=== PATIENT | female | born 1935 | race Caucasian/White ===

== ENCOUNTER 2017-11-06 19:58 | Observation (INO) | payer MEDICARE, BC ==
[2017-11-06] MEDS ORDERED: Sodium Chloride 0.9% 10 ML Syringe FLUSH PRN (20:58)
[2017-11-06 21:24] LABS: ANION GAP 12.5; CHLORIDE,CL 108 mmol/L (101-111); SODIUM,NA 140 mmol/L (135-145)
[2017-11-06] MEDS ORDERED: Aspirin 81 MG Tab.Chew PO ONE (21:32)
--- NOTE | 2017-11-06 21:43 | EDM.PDOC ---
ED HPI GENERAL MEDICAL PROBLEM - General Chief Complaint: Cardiovascular Problem Stated Complaint: IRREGULAR HEART BEATS, Time Seen by Provider: 11/06/17 21:20 Source of Information: Reports: Patient History Limitations: Reports: No Limitations - History of Present Illness INITIAL COMMENTS - FREE TEXT/NARRATIVE: patient comes emergency Department today with complaints of palpitations and irregular heartbeat. Today approximately noon she noticed that she had multiple irregular heartbeats. 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 She is unsure of how fast her heart rate was that she did not check for a total count of her beats per minute. She did have some chest pain and shortness of breath at approximately noon although at this time is really asymptomatic other than complaining of some irregular heartbeat as well as palpitations. She denies any nausea vomiting or diaphoresis. She denies any weakness dizziness or syncope. She was seen in the clinic a couple of days ago for very similar symptoms and was referred to cardiology for further evaluation for possible atrial fibrillation and/or atrial flutter. - Related Data Allergies Allergy/AdvReac Type Severity Reaction Status Date / Time atorvastatin calcium Allergy Other Verified 11/06/17 22:55 [From Lipitor] ezetimibe Allergy Cannot Verified 11/06/17 22:55 Remember fish oil Allergy Other Verified 11/06/17 22:55 hydrochlorothiazide Allergy Other Verified 11/06/17 22:55 pravastatin Allergy Other Verified 11/06/17 22:55 rosuvastatin calcium Allergy Other Verified 11/06/17 22:55 [From Crestor] simvastatin Allergy Cannot Verified 11/06/17 22:55 Remember statins Allergy Arrhythmias Uncoded 11/06/17 22:55 Home Meds: Home Meds Aspirin [Adult Low Dose Aspirin EC] 81 mg PO DAILY 10/23/13 [History] Lisinopril 30 mg PO DAILY 10/23/13 [History] Past Medical History HEENT History: Reports: Hard of Hearing Cardiovascular History: Reports: Heart Murmur, High Cholesterol, Hypertension Gastrointestinal History: Reports: Hemorrhoids 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: Musculoskeletal History: Reports: Arthritis Neurological History: Reports: None Psychiatric History: Reports: None Endocrine/Metabolic History: Reports: None Hematologic History: Reports: Anemia Immunologic History: Reports: None Oncologic (Cancer) History: Reports: None Dermatologic History: Reports: None - Infectious Disease History Infectious Disease History: Reports: Measles, Mumps - Past Surgical History HEENT Surgical History: Reports: Cataract Surgery GI Surgical History: Reports: Colonoscopy Female Surgical History: Reports: D&C Musculoskeletal Surgical History: Reports: Carpal Tunnel Social & Family History - Family History Cardiac: Reports: High Cholesterol, Hypertension, [place] Other Cardiac Family History: Mother brother and 2 sisters of heart attacks. - Tobacco Use Smoking Status *Q: Never Smoker Years of Tobacco use: 20 Month Tobacco Last Used: 1964 Second Hand Smoke Exposure: No - Caffeine Use Caffeine Use: Reports: Coffee - Alcohol Use Days Per Week of Alcohol Use: 1 Number of Drinks Per Day: 1 Total Drinks Per Week: 1 - Recreational Drug Use Recreational Drug Use: No ED ROS GENERAL - Review of Systems Review Of Systems: ROS reveals no pertinent complaints other than HPI. ED EXAM, GENERAL - Physical Exam Exam: See Below Exam Limited By: No Limitations General Appearance: Alert, WD/WN, No Apparent Distress Eye Exam: Bilateral Eye: Normal Inspection Ears: Normal External Exam, Normal Canal, Normal TMs Nose: Normal Inspection Throat/Mouth: Normal Inspection, Normal Lips, Normal Oropharynx Head: Atraumatic, Normocephalic Neck: Normal Inspection, Supple Respiratory/Chest: No Respiratory Distress, Lungs Clear, Normal Breath Sounds, No Accessory Muscle Use Cardiovascular: Normal Peripheral Pulses, No Edema, No JVD, No Murmur. No: Regular Rate, Rhythm (EKG shows a normal sinus rhythm with frequent PACs. These are perfuse PACs. She does have irregular distal pulses.), No Rub, Diastolic Murmur Peripheral Pulses: 2+: Radial (L), Radial (R), Posterior Tibial (L), Posterior Tibial (R), Dorsalis Pedis (L), Dorsalis Pedis (R) GI/Abdominal: Normal Bowel Sounds, Soft (Female) Exam: Deferred Rectal (Female) Exam: Deferred Back Exam: Normal Inspection, Full Range of Motion Extremities: Normal Inspection, Normal Range of Motion, Non-Tender, Normal Capillary Refill Neurological: Alert, Oriented, CN II-XII Intact, Normal Reflexes Psychiatric: Normal Affect, Normal Mood Skin Exam: Warm, Dry, Normal Color, No Rash Lymphatic: No Adenopathy EKG INTERPRETATION EKG Date: 11/06/17 Time: 20:34 Rhythm: NSR (with frequent perfused PACs multifocal.) Rate (Beats/Min): 78 [place]: Normal P-Wave: Present QRS: Normal ST-T: Normal QT: Normal Comparison: NA - No Prior EKG Course - Vital Signs Last Recorded V/S: Last Vital Signs Temp 36.5 C 11/06/17 22:40 Pulse 73 11/06/17 22:40 Resp 18 11/06/17 22:40 BP 153/90 H 11/06/17 22:40 Pulse Ox 99 11/06/17 22:40 - Orders/Labs/Meds Orders: Active Orders 24 hr Category Date Time Status EKG 12 Lead [EKG Documentation Completion] [RC] URGENT Care 11/06/17 20:58 Active Telemetry Monitoring [Cardiac Monitoring] [RC] . Care 11/06/17 22:44 Active DIRECTED BASIC METABOLIC PANEL,BMP [CHEM] AM Lab 11/07/17 05:11 Ordered CBC WITH AUTO DIFF [HEME] AM Lab 11/07/17 05:15 Ordered MAGNESIUM [CHEM] AM Lab 11/07/17 05:11 Ordered PHOSPHORUS [CHEM] AM Lab 11/07/17 05:11 Ordered TROPONIN I [CHEM] AM Lab 11/07/17 05:11 Ordered Aspirin [Halfprin] Med 11/07/17 09:00 Active 81 mg PO DAILY Lisinopril [Prinivil] Med 11/07/17 09:00 Active 30 mg PO DAILY Sodium Chloride 0.9% [Saline Flush] Med 11/06/17 20:58 Active 10 ml FLUSH ASDIRECTED PRN Peripheral IV Insertion Adult [OM.PC] Stat Oth 11/06/17 20:58 Ordered Medication Orders Acetaminophen (Tylenol) 650 mg PO Q4H PRN PRN Reason: Pain (Mild 1-3)/fever Aspirin (Halfprin) 81 mg PO DAILY [facility] Heparin Sodium (Porcine) (Heparin Sodium) 5,000 units SUBCUT Q8HR [facility] Lisinopril (Prinivil) 30 mg PO DAILY [facility] Sodium Chloride (Saline Flush) 10 ml FLUSH ASDIRECTED PRN PRN Reason: Keep Vein Open Last Admin: 11/06/17 22:00 Dose: 10 ml Zolpidem Tartrate (Ambien) 5 mg PO BEDTIME PRN PRN Reason: Sleep Labs: Laboratory Tests 11/06/17 11/06/17 11/06/17 Range/Units 20:53 20:53 20:53 WBC 5.3 (5.0-10.0) 10^3/uL RBC 4.20 (4.2-5.4) 10^6/uL Hgb 14.0 (12.0-16.0) g/dL Hct 41.7 (37.0-47.0) % MCV 99.3 (80-100) fL MCH 33.3 (27.0-34.0) pg MCHC 33.6 (33.0-35.0) g/dL Plt Count 198 (150-450) 10^3/uL Neut % (Auto) 54.2 (42.2-75.2) % Lymph % (Auto) 29.8 (20.5-50.1) % Grand % (Auto) 13.9 H (2-8) % Eos % (Auto) 1.7 (1.0-3.0) % Baso % (Auto) 0.4 (0.0-1.0) % Sodium 140 (135-145) mmol/L Potassium 3.5 L (3.6-5.0) mmol/L Chloride 108 (101-111) mmol/L Carbon Dioxide 23.0 (21.0-31.0) mmol/L Anion Gap 12.5 BUN 24 H (7-18) mg/dL Creatinine 0.9 (0.6-1.3) mg/dL Est Cr Clr Drug Dosing TNP Estimated GFR (MDRD) > 60 BUN/Creatinine Ratio 26.66 Glucose 114 H (74-105) mg/dL Calcium 9.1 (8.4-10.2) mg/dl Total Bilirubin 0.7 (0.2-1.0) mg/dL AST 26 (10-42) IU/L ALT 17 (10-60) IU/L Alkaline Phosphatase 61 (42-121) IU/L Troponin I 0.03 H* (0.00-0.02) ng/ml C-Reactive Protein (0.0-1.3) mg/dL Total Protein 6.7 (6.7-8.2) g/dl Albumin 3.9 (3.2-5.5) g/dl Globulin 2.8 Albumin/Globulin Ratio 1.39 TSH, Ultra Sensitive 2.46 (0.45-5.33) uIu/mL 11/06/17 Range/Units 20:53 WBC (5.0-10.0) 10^3/uL RBC (4.2-5.4) 10^6/uL Hgb (12.0-16.0) g/dL Hct (37.0-47.0) % MCV (80-100) fL MCH (27.0-34.0) pg MCHC (33.0-35.0) g/dL Plt Count (150-450) 10^3/uL Neut % (Auto) (42.2-75.2) % Lymph % (Auto) (20.5-50.1) % Grand % (Auto) (2-8) % Eos % (Auto) (1.0-3.0) % Baso % (Auto) (0.0-1.0) % Sodium (135-145) mmol/L Potassium (3.6-5.0) mmol/L Chloride (101-111) mmol/L Carbon Dioxide (21.0-31.0) mmol/L Anion Gap BUN (7-18) mg/dL Creatinine (0.6-1.3) mg/dL Est Cr Clr Drug Dosing Estimated GFR (MDRD) BUN/Creatinine Ratio Glucose (74-105) mg/dL Calcium (8.4-10.2) mg/dl Total Bilirubin (0.2-1.0) mg/dL AST (10-42) IU/L ALT (10-60) IU/L Alkaline Phosphatase (42-121) IU/L Troponin I (0.00-0.02) ng/ml C-Reactive Protein 0.5 (0.0-1.3) mg/dL Total Protein (6.7-8.2) g/dl Albumin (3.2-5.5) g/dl Globulin Albumin/Globulin Ratio TSH, Ultra Sensitive (0.45-5.33) uIu/mL Meds: Medications Generic Name Dose Route Start Last Admin Trade Name Freq PRN Reason Stop Dose Admin Acetaminophen 650 mg 11/06/17 22:58 Tylenol PO Q4H PRN Pain (Mild 1-3)/fever Aspirin 81 mg 11/07/17 09:00 Halfprin PO DAILY JAMEEL Heparin Sodium (Porcine) 5,000 units 11/07/17 06:00 Heparin Sodium SUBCUT Q8HR JAMEEL Lisinopril 30 mg 11/07/17 09:00 Prinivil PO DAILY JAMEEL Sodium Chloride 10 ml 11/06/17 20:58 11/06/17 22:00 Saline Flush FLUSH 10 ml ASDIRECTED PRN Administration Keep Vein Open Zolpidem Tartrate 5 mg 11/06/17 22:58 Ambien PO BEDTIME PRN Sleep Discontinued Medications Generic Name Dose Route Start Last Admin Trade Name Maryam PRN Reason Stop Dose Admin Aspirin 324 mg 11/06/17 21:32 11/06/17 21:58 Aspirin PO 11/06/17 21:33 324 mg ONETIME ONE Administration Potassium Chloride 40 meq 11/06/17 22:46 11/06/17 23:17 Klor-Con 10 PO 11/06/17 22:47 40 meq ONETIME ONE Administration - Re-Assessments/Exams Free Text/Narrative Re-Assessment/Exam: 11/07/17 01:03 patient is really without any complaints. She denies any chest pain or shortness of breath but does note the irregularities and palpitations that she senses. She does have an elevated troponin which is mildly elevated at 0.03. This could be caused due to recent tachycardia causing strain on the cardiac muscle. She was given aspirin in the emergency department. I feel that with the elevated troponin she needs trending of her troponin as well as monitoring for any tachyarrhythmias including atrial fibrillation flutter. She is comfortable with this plan. I spoke with the hospitalist Dr. Triplett who accepted the patient into his care here at [facility]. Departure - Departure Time of Disposition: 22:00 Disposition: Refer to Observation Clinical Impression: PAC (premature atrial contraction), Elevated troponin - My Orders Last 24 Hours: My Active Orders 11/06/17 20:58 EKG 12 Lead [EKG Documentation Completion] [RC] URGENT Sodium Chloride 0.9% [Saline Flush] 10 ml FLUSH ASDIRECTED PRN Peripheral IV Insertion Adult [OM.PC] Stat - Assessment/Plan Last 24 Hours: My Active Orders 11/06/17 20:58 EKG 12 Lead [EKG Documentation Completion] [RC] URGENT Sodium Chloride 0.9% [Saline Flush] 10 ml FLUSH ASDIRECTED PRN Peripheral IV Insertion Adult [OM.PC] Stat Assessment:: palpitations, normal sinus rhythm with frequent multifocal atrial premature complexes. Elevated troponin. Plan: admit Observation Dr. Triplett for further care and evaluation.
[2017-11-06] MEDS ORDERED: Potassium Chloride 10 MEQ Tab.ER PO ONE (22:46)
[2017-11-06] MEDS ORDERED: Zolpidem 5 MG Tab PO PRN (22:58)
[2017-11-06] MEDS ORDERED: Acetaminophen 325 MG Tab PO PRN (22:58)
--- NOTE | 2017-11-06 23:28 | PCM.HP ---
H&P History of Present Illness - General Date of Service: 11/06/17 Admit Problem/Dx: Admission Diagnosis/Problem Admission Diagnosis/Problem Palpitations Source of Information: Patient - History of Present Illness Initial Comments - Free Text/Narative: The patient is an 82-year-old lady with a history of hypertension. She presented with complaints of palpitation. She had similar symptoms a few months ago. She had no chest pain, no shortness of breath, has chronic mild lower extremity swelling which did not change lately. She is drinking about 1 coffee a day - Related Data Allergies/Adverse Reactions: Allergies Allergy/AdvReac Type Severity Reaction Status Date / Time atorvastatin calcium Allergy Other Verified 11/06/17 22:55 [From Lipitor] ezetimibe Allergy Cannot Verified 11/06/17 22:55 Remember fish oil Allergy Other Verified 11/06/17 22:55 hydrochlorothiazide Allergy Other Verified 11/06/17 22:55 pravastatin Allergy Other Verified 11/06/17 22:55 rosuvastatin calcium Allergy Other Verified 11/06/17 22:55 [From Crestor] simvastatin Allergy Cannot Verified 11/06/17 22:55 Remember statins Allergy Arrhythmias Uncoded 11/06/17 22:55 Home Medications: Home Meds Aspirin [Adult Low Dose Aspirin EC] 81 mg PO DAILY 10/23/13 [History] Lisinopril 30 mg PO DAILY 10/23/13 [History] Past Medical History HEENT History: Reports: Hard of Hearing Cardiovascular History: Reports: Heart Murmur, High Cholesterol, Hypertension Gastrointestinal History: Reports: Hemorrhoids [employer]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: Musculoskeletal History: Reports: Arthritis Neurological History: Reports: None Psychiatric History: Reports: None Endocrine/Metabolic History: Reports: None Hematologic History: Reports: Anemia Immunologic History: Reports: None Oncologic (Cancer) History: Reports: None Dermatologic History: Reports: None - Infectious Disease History Infectious Disease History: Reports: Measles, Mumps - Past Surgical History HEENT Surgical History: Reports: Cataract Surgery GI Surgical History: Reports: Colonoscopy Female Surgical History: Reports: D&C Musculoskeletal Surgical History: Reports: Carpal Tunnel Social & Family History - Family History Family Medical History: Noncontributory Cardiac: Reports: High Cholesterol, Hypertension, [place] Other Cardiac Family History: Mother brother and 2 sisters of heart attacks. - Tobacco Use Smoking Status *Q: Never Smoker Years of Tobacco use: 20 Month Tobacco Last Used: 1964 Second Hand Smoke Exposure: No - Caffeine Use Caffeine Use: Reports: Coffee - Alcohol Use Days Per Week of Alcohol Use: 1 Number of Drinks Per Day: 1 Total Drinks Per Week: 1 - Recreational Drug Use Recreational Drug Use: No H&P Review of Systems - Review of Systems: Review Of Systems: See Below General: Denies: Fever Pulmonary: Denies: Shortness of Breath Cardiovascular: Reports: Palpitations. Denies: Chest Pain, Dyspnea on Exertion Gastrointestinal: Denies: Abdominal Pain Psychiatric: Denies: Confusion Exam - Exam Exam: See Below - Vital Signs Vital Signs: Last Vital Signs Temp 36.5 C 11/06/17 22:40 Pulse 73 11/06/17 22:40 Resp 18 11/06/17 22:40 BP 153/90 H 11/06/17 22:40 Pulse Ox 99 11/06/17 22:40 Weight: 93.44 kg - Exam General: Alert, Oriented Neck: Supple Lungs: Clear to Auscultation, Normal Respiratory Effort Cardiovascular: Irregular Rhythm GI/Abdominal Exam: Normal Bowel Sounds, Soft, Non-Tender Extremities: Pedal Edema (Trace bilateral) Skin: Warm, Dry Neuro Extensive - Mental Status: Alert, Oriented x3 - Patient Data Result Diagrams: 11/06/17 20:53 11/06/17 20:53 Imaging Impressions Last 24 hrs: EKG per my reading shows PACs *Q Meaningful Use (ADM) - VTE *Q VTE Criteria *Q: - Stroke *Q Stroke Criteria *Q: - AMI *Q AMI Criteria *Q: - Problem List (1) Palpitation SNOMED Code(s): 57555547 ICD Code: R00.2 - PALPITATIONS Status: Acute Current Visit: Yes (2) Hypertension SNOMED Code(s): 48954812 ICD Code: I10 - ESSENTIAL (PRIMARY) HYPERTENSION Status: Acute Current Visit: Yes Problem List Initiated/Reviewed/Updated: Yes Orders Last 24hrs: Active Orders 24 hr Category Date Time Status Patient Status [ADT] Routine ADT 11/06/17 22:58 Ordered Antiembolic Devices [RC] PER UNIT ROUTINE Care 11/06/17 23:03 Ordered Oxygen Therapy [RC] PRN Care 11/06/17 22:58 Ordered Telemetry Monitoring [Cardiac Monitoring] [RC] . Care 11/06/17 22:44 Active DIRECTED Up With Assistance [RC] ASDIRECTED Care 11/06/17 22:58 Ordered VTE/DVT Education [RC] PER UNIT ROUTINE Care 11/06/17 22:58 Ordered Vital Signs [RC] Q4H Care 11/06/17 22:58 Ordered Regular Diet [DIET] Diet 11/06/17 Breakfast Ordered BASIC METABOLIC PANEL,BMP [CHEM] AM Lab 11/07/17 05:15 Ordered CBC WITH AUTO DIFF [HEME] AM Lab 11/07/17 05:15 Ordered MAGNESIUM [CHEM] AM Lab 11/07/17 05:11 Ordered PHOSPHORUS [CHEM] AM Lab 11/07/17 05:11 Ordered TROPONIN I [CHEM] AM Lab 11/07/17 05:11 Ordered Acetaminophen [Tylenol] Med 11/06/17 22:58 Ordered 650 mg PO Q4H PRN Aspirin [Halfprin] Med 11/07/17 09:00 Ordered 81 mg PO DAILY Heparin Sodium Med 11/07/17 06:00 Ordered 5,000 units SUBCUT Q8HR Lisinopril [Lisinopril] Med 11/07/17 09:00 Ordered 30 mg PO DAILY Zolpidem [Ambien] Med 11/06/17 22:58 Ordered 5 mg PO BEDTIME PRN Sequential Compression Device [OM.PC] Per Unit Routine Oth 11/06/17 23:02 Ordered Resuscitation Status Routine Resus Stat 11/06/17 22:58 Ordered Medication Orders Acetaminophen (Tylenol) 650 mg PO Q4H PRN PRN Reason: Pain (Mild 1-3)/fever Aspirin (Halfprin) 81 mg PO DAILY JAME[facility] Heparin Sodium (Porcine) (Heparin Sodium) 5,000 units SUBCUT Q8HR [facility] Non-Formulary Medication (Lisinopril [Lisinopril]) 30 mg PO DAILY [facility] Sodium Chloride (Saline Flush) 10 ml FLUSH ASDIRECTED PRN PRN Reason: Keep Vein Open Last Admin: 11/06/17 22:00 Dose: 10 ml Zolpidem Tartrate (Ambien) 5 mg PO BEDTIME PRN PRN Reason: Sleep Assessment/Plan Comment:: The patient presented with palpitation Noted to have frequent PACs. We'll monitor on telemetry, TSH is normal. No significant complaining take other than 1 drink per day. The patient has some mild hypokalemia we'll replace that Check magnesium and phosphorus in the morning Minimally elevated troponin This is unlikely true [place] Repeat troponin in the morning Monitor on telemetry Continue on aspirin Hypertension Treat with lisinopril Follow and adjust as needed DVT prophylaxis will be with Subcutaneous heparin
[2017-11-07] MEDS ORDERED: Heparin Sodium 5,000 Units/ML Vial SUBCUT SCH (06:00)
[2017-11-07 07:08] LABS: ANION GAP 11.9; CHLORIDE,CL 109 mmol/L (101-111); SODIUM,NA 142 mmol/L (135-145)
[2017-11-07] MEDS ORDERED: Lisinopril 10 MG Tab PO SCH (09:00)
[2017-11-07] MEDS ORDERED: Aspirin 81 MG Tab.EC PO SCH (09:00)
[2017-11-07 09:55] VITALS: BP 142/70
--- NOTE | 2017-11-07 09:59 | PCM.DCSUM1 ---
Discharge Summary - Hospital Course Free Text/Narrative:: The patient presented with palpitation Noted to have frequent PACs. no further arrythmia on telemetry, TSH is normal. The patient had mild hypokalemia we replaced that recheck in a few days Minimally elevated troponin This is unlikely true [place] Repeat troponin remained the same Continue on aspirin Hypertension uncontrolled increased lisinopril Follow and adjust as needed as out pt - Discharge Data Discharge Date: 11/07/17 Discharge Disposition: Home, Self-Care 01 Condition: Good - Discharge Diagnosis/Problem(s) (1) Palpitation SNOMED Code(s): 06730025 ICD Code: R00.2 - PALPITATIONS Status: Acute Current Visit: Yes (2) Hypertension SNOMED Code(s): 33622802 ICD Code: I10 - ESSENTIAL (PRIMARY) HYPERTENSION Status: Acute Current Visit: Yes - Patient Instructions Diet: Heart Healthy Diet Activity: As Tolerated - Discharge Plan Prescriptions/Med Rec: Lisinopril 40 mg PO DAILY #30 tablet Home Medications: Home Meds Aspirin [Adult Low Dose Aspirin EC] 81 mg PO DAILY 10/23/13 [History] Lisinopril 40 mg PO DAILY #30 tablet 11/07/17 [Rx] Patient Handouts: Premature Atrial Contraction, Hypokalemia, Cardiac-Specific Troponin I and T Test, Hypertension, [id number], Palpitations, [id number], Lisinopril tablets Forms: ED Department Discharge Referrals: PCP,None [Primary Care Provider] - (Rebeca Vergara in 3 days) - General Info Date of Service: 11/07/17 - Review of Systems General: Denies: Fever, Weakness Pulmonary: Denies: Shortness of Breath Cardiovascular: Reports: Palpitations (resolved). Denies: Chest Pain Gastrointestinal: Denies: Abdominal Pain - Patient Data Vitals - Most Recent: Last Vital Signs Temp 36.2 C 11/07/17 08:00 Pulse 73 11/07/17 08:00 Resp 13 11/07/17 08:00 BP 142/70 H 11/07/17 09:52 Pulse Ox 97 11/07/17 08:00 Weight - Most Recent: 93.44 kg Lab Results - Last 24 hrs: Laboratory Results - last 24 hr 11/07/17 11/07/17 Range/Units 06:17 06:17 WBC 4.7 L (5.0-10.0) 10^3/uL RBC 4.49 (4.2-5.4) 10^6/uL Hgb 14.9 (12.0-16.0) g/dL Hct 44.7 (37.0-47.0) % MCV 99.6 (80-100) fL MCH 33.2 (27.0-34.0) pg MCHC 33.3 (33.0-35.0) g/dL Plt Count 199 (150-450) 10^3/uL Neut % (Auto) 52.3 (42.2-75.2) % Lymph % (Auto) 32.1 (20.5-50.1) % [place] % (Auto) 11.8 H (2-8) % Eos % (Auto) 3.6 H (1.0-3.0) % Baso % (Auto) 0.2 (0.0-1.0) % Sodium 142 (135-145) mmol/L Potassium 3.9 (3.6-5.0) mmol/L Chloride 109 (101-111) mmol/L Carbon Dioxide 25.0 (21.0-31.0) mmol/L Anion Gap 11.9 BUN 22 H (7-18) mg/dL Creatinine 0.9 (0.6-1.3) mg/dL Est Cr Clr Drug Dosing 45.89 mL/min Estimated GFR (MDRD) > 60 Glucose 97 (74-105) mg/dL Calcium 9.4 (8.4-10.2) mg/dl Phosphorus 2.9 (2.5-4.6) mg/dL Magnesium 2.2 (1.8-2.5) mg/dL Troponin I 0.03 H* (0.00-0.02) ng/ml Med Orders - Current: Current Medications Acetaminophen (Tylenol) 650 mg PO Q4H PRN PRN Reason: Pain (Mild 1-3)/fever Aspirin (Halfprin) 81 mg PO DAILY [facility] Last Admin: 11/07/17 09:22 Dose: 81 mg Heparin Sodium (Porcine) (Heparin Sodium) 5,000 units SUBCUT Q8HR [facility] Last Admin: 11/07/17 06:09 Dose: Not Given Lisinopril (Prinivil) 30 mg PO DAILY [facility] Last Admin: 11/07/17 09:23 Dose: 30 mg Sodium Chloride (Saline Flush) 10 ml FLUSH ASDIRECTED PRN PRN Reason: Keep Vein Open Last Admin: 11/06/17 22:00 Dose: 10 ml Zolpidem Tartrate (Ambien) 5 mg PO BEDTIME PRN PRN Reason: Sleep Discontinued Medications Aspirin (Aspirin) 324 mg PO ONETIME ONE Stop: 11/06/17 21:33 Last Admin: 11/06/17 21:58 Dose: 324 mg Potassium Chloride (Klor-Con 10) 40 meq PO ONETIME ONE Stop: 11/06/17 22:47 Last Admin: 11/06/17 23:17 Dose: 40 meq - Exam General: Reports: Alert, Oriented Neck: Reports: Supple Lungs: Reports: Clear to Auscultation, Normal Respiratory Effort Cardiovascular: Reports: Regular Rhythm (with premature beats) GI/Abdominal Exam: Normal Bowel Sounds, Soft, Non-Tender Extremities: No Pedal Edema *Q Meaningful Use (DIS) - VTE *Q VTE Criteria *Q: - Stroke *Q Stroke Criteria *Q: - AMI *Q AMI Criteria *Q:
--- NOTE | 2017-11-12 14:55 | EKG ---
11/06/2017- YTSON MINAYA - FINDINGS: EKG, per my reading, shows sinus rhythm at the rate of 70s with PACs. [facility] /[id number]
== END 2017-11-07 10:15 | disposition home or self-care (01) ==
LOC: DL.ED 19:58 → DL.MS 22:06 → UNDOADMOB 22:06 → DL.MS 22:58
PROVIDERS: ADMIT Internal Medicine; ATTEND Internal Medicine
DX: R00.2 Palpitations (principal); I10 Essential (primary) hypertension; E78.00 Pure hypercholesterolemia, unspecified; Z79.82 Long term (current) use of aspirin; Z79.899 Other long term (current) drug therapy; Z88.8 Allergy status to other drugs, medicaments and biological substances; Z91.013 Allergy to seafood
CPT/HCPCS: 36415; 80048; 80053; 83735; 84100; 84443; 84484; 85025; 86140; 93005; 93010; 99285; A9270; J7050; 99217; 99218; G0378

== ENCOUNTER 2022-01-24 19:01 | Emergency (ER) | payer MEDICARE, BC ==
[2022-01-24 19:12] VITALS: BP 155/77; PULSE 86
[2022-01-24] MEDS ORDERED: Morphine 2 MG/ML SYRINGE IVPUSH ONE (21:39)
== END 2022-01-24 21:55 ==
LOC: DL.ED 19:01
DX: S72.141A Displaced intertrochanteric fracture of right femur, initial encounter for closed fracture (principal); E78.00 Pure hypercholesterolemia, unspecified; I10 Essential (primary) hypertension; Z91.013 Allergy to seafood; Z88.8 Allergy status to other drugs, medicaments and biological substances; Z79.82 Long term (current) use of aspirin; Z79.899 Other long term (current) drug therapy; W19.XXXA Unspecified fall, initial encounter
CPT/HCPCS: 71045; 72170; 72192; 96374; 99285; J2270

== ENCOUNTER 2022-07-03 03:20 | Emergency (ER) | payer MEDICARE, BC ==
[2022-07-03] MEDS ORDERED: Albuterol 0.083% 2.5 MG/3 ML Neb Soln NEB ONE (03:39)
[2022-07-03] MEDS ORDERED: Furosemide 20 MG/2 ML VIAL IVPUSH ONE (03:39)
[2022-07-03 03:47] VITALS: BP 134/82; PULSE 102
[2022-07-03 04:02] LABS: ANION GAP 12.7 mEq/L (7-13); CHLORIDE,CL 106 mmol/L (98-107); SODIUM,NA 144 mmol/L (136-145)
[2022-07-03 04:04] LABS: ESTIMATED GFR 56 mL/min (>=60)
[2022-07-03] MEDS ORDERED: Iopamidol 755 Mg/ML 100 ML Bottle IVPUSH ONE (04:26)
[2022-07-03] MEDS: Aspirin 81 MG Tab.Chew PO ONE ×2 (07:09→07:31)
== END 2022-07-03 08:25 ==
LOC: DL.ED 03:20
DX: I24.9 Acute ischemic heart disease, unspecified (principal); J90 Pleural effusion, not elsewhere classified; I11.0 Hypertensive heart disease with heart failure; I50.9 Heart failure, unspecified; F03.90 Unspecified dementia, unspecified severity, without behavioral disturbance, psychotic disturbance, mood disturbance, and anxiety; E78.00 Pure hypercholesterolemia, unspecified; Z86.16 Personal history of COVID-19; Z91.013 Allergy to seafood; Z88.8 Allergy status to other drugs, medicaments and biological substances; Z79.82 Long term (current) use of aspirin; Z79.899 Other long term (current) drug therapy
CPT/HCPCS: 36415; 71045; 71260; 80053; 83880; 84484; 85025; 85379; 93005; 93010; 96374; 99285; 99285-25; A9270-GY; J1940; J7613-GY; Q9967